=== PATIENT | female | born 1955 | race Caucasian/White ===

== ENCOUNTER → 2016-11-04 | Outpatient (CLI) | payer OTHER ==
[~2016-11-04] MED LIST: CALCIUM + D 6001 TA1 PO; CEFTIN500 MG PO; COMBIGAN EYE DRO5 ML OS; CYANOCOBALAM1000 MCG PO; HYDROCHLOROTH12.5 MG PO; LEVOTHYROXINE75 MCG PO; LORATADINE-D 11 EACH PO; NAPROSYN500 MG PO; NEPTAZANE50 M1 PO; NICOTINE TRANSD21 MG EXT; NORCO 7.5-3251 EACH PO; PHENERGAN25 M1 PO; PRED FORTE1 ML OS; PREDNISONE10 MG/DOSE PO; STEROIDS; SYNTHROID175 MCG PO; ZOLOFT; ZOLOFT PO; ZYRTEC
--- NOTE | ~2016-11-04 | CT57 ---
[facility] A Service of [facility] RADIOLOGY TEXT RESULTS PATIENT: GAYATHRI STOREY LOCATION: [facility] : 55 UNIT #: [id number] AGE: [address]: Monisha Irene SEX: F ORDER DR: [id number] [facility] [address] [place], [place] [address] [id number] O MR#: [id number] [facility] #: [id number] NAME: GAYATHRI STOREY : 1955 SEX: F STUDY DATE/TIME: 11/04/2016 10:36 UNIT: [facility] ROOM: STUDY DESCRIPTION: CT Chest Wo Cont Attending Physician: Monisha Irene A.P.R.N. Referring Physician: Monisha Irene A.P.R.N. Ordering Physician: Monisha Irene A.P.R.N. Primary Care Physician: Joshua Delvalle M.D. MEDICAL IMAGING REPORT This report is preliminary unless electronic signature is present EXAM CT chest. HISTORY COPD. Cough and wheezing for several years. Pneumonia June 2016. TECHNIQUE CT of the thorax without contrast. Coronal and sagittal reconstructions were obtained. This CT exam was performed with one or more of the following radiation dose reduction techniques: automatic exposure control, adjustment of mA and/or kV according to patient size, and iterative reconstruction. COMPARISON STUDIES Chest radiograph, 09/23/2016. FINDINGS There is mild centrilobular emphysema. There is minimal linear scarring or atelectasis in both lung bases. There is some mild mucous plugging within the right lower lobe bronchus. No focal consolidation. No thoracic aortic aneurysm. No pericardial or pleural effusion. No enlarged mediastinal or hilar lymph nodes. Benign bilateral adrenal adenomas are noted. No acute osseous abnormalities. IMPRESSION 1. Mild emphysema. 2. Mucous plugging within the right lower lobe bronchi. 3. Minimal linear atelectasis/scarring in the lung bases. [facility] A Service [facility] RADIOLOGY TEXT RESULTS PATIENT: GAYATHRI STOREY LOCATION: [facility] : 55 UNIT #: [id number] AGE: [address]: Monisha Irene SEX: F ORDER DR: Dictated by... Minh Martinez M.D. THIS IS AN ELECTRONICALLY VERIFIED REPORT Minh Martinez M.D. at 11/05/2016 9:21 AM ASHLIE/jake TD: 11/04/2016 16:25 JOB #: [id number] MEDICAL IMAGING REPORT COPY
--- NOTE | ~2016-11-04 | PFT ---
[id number] [facility] [address] [place], [place] [address] [id number] O MR#: [id number] NAME: GAYATHRI STOREY ROOM: SEX: F STUDY DATE/TIME: 11/04/2016 : 1955 AGE: 61 STUDY DESCRIPTION: Attending Physician: Monisha Irene A.P.R.N. Referring Physician: Monisha Irene A.P.R.N. Primary Care Physician: Joshua Delvalle M.D. PULMONARY DIAGNOSTIC REPORT EXAM Pulmonary function test FINDINGS 1. The test meets ATS criteria for acceptability and repeatability. 2. Spirometry shows moderate obstruction with no good bronchodilator response. 3. Lung volumes show significant airtrapping and hyperinflation. 4. Diffusion capacity is moderately to severely reduced. It corrects partially for alveolar ventilation. Dictated by... Cassandra Jimenez/stefan TD: 12/10/2016 21:06 JOB #: [id number] PULMONARY DIAGNOSTIC REPORT Page 1 of 1
== END | disposition home or self-care (01) ==
LOC: CRC 09:12
DX: J44.9 Chronic obstructive pulmonary disease, unspecified (principal); J43.9 Emphysema, unspecified; J98.09 Other diseases of bronchus, not elsewhere classified; J98.4 Other disorders of lung; Z72.0 Tobacco use
CPT/HCPCS: 71250; 94060; 94726; 94729

== ENCOUNTER 2017-03-14 11:57 | Emergency (ER) | payer OTHER ==
--- NOTE | ~2017-03-14 | CR126 ---
[facility]. [facility] A Service of [facility] & [facility] RADIOLOGY TEXT RESULTS PATIENT: GAYATHRI STOREY LOCATION: SED : 55 UNIT #: [id number] AGE: [address]: VINAY SMITH SEX: F ORDER DR: [id number] [place] [id number] E MR#: [id number] Acc #: [id number] NAME: GAYATHRI STOREY : 1955 SEX: F STUDY DATE/TIME: 03/14/2017 14:18 UNIT: SED ROOM: STUDY DESCRIPTION: CR Foot Complete Min 3 View Lt Ordering Physician: [facility] Primary Care Physician: Joshua Delvalle M.D. MEDICAL IMAGING REPORT This report is preliminary unless electronic signature is present. EXAM 3 views of the left foot 03/14/2017 HISTORY 61-year-old female, who fell at home today with pain to the left foot and ankle. COMPARISON None. FINDINGS The tarsal, metatarsal, and phalangeal elements are all anatomically normal in position and alignment. There are no articular defects. No fractures or radiopaque foreign bodies in the soft tissues are apparent. IMPRESSION Normal foot. Dictated by... Sierra Flroes M.D. THIS IS AN ELECTRONICALLY VERIFIED REPORT Sierra Flores M.D. at 03/15/2017 7:08 AM DISHA/juve TD: 03/15/2017 02:11 JOB #: [id number] MEDICAL IMAGING REPORT Page 1 of 1
--- NOTE | ~2017-03-14 | CT71 ---
[facility] A Service of [facility] RADIOLOGY TEXT RESULTS PATIENT: GAYATHRI STOREY LOCATION: SED : 55 UNIT #: [id number] AGE: [address]: VINAY SMITH SEX: F ORDER DR: [id number] [place] [id number] E MR#: [id number] Acc #: [id number] NAME: GAYATHRI STOREY : 1955 SEX: F STUDY DATE/TIME: 03/14/2017 14:19 UNIT: SED ROOM: STUDY DESCRIPTION: CT Head Wo Contrast Ordering Physician: [facility] Primary Care Physician: Joshua Delvalle M.D. MEDICAL IMAGING REPORT This report is preliminary unless electronic signature is present. EXAM Noncontrast CT head 03/14/2015 HISTORY Fell at home today with abrasion and bruising to the bridge of the nose and to the right eye. Hypertension. COMPARISON Noncontrast CT head 09/05/2014. TECHNIQUE This CT exam was performed with one or more of the following radiation dose reduction techniques: automatic exposure control, adjustment of mA and/or kV according to patient size, and iterative reconstruction. FINDINGS No acute intracranial hemorrhage, mass lesion, mass effect or midline shift is seen. Hypodensities are seen within the periventricular and deep white matter of the brain, similar to the previous examination, but there is no convincing CT evidence of acute or evolving infarct. No mass lesion, mass effect or midline shift. Ventricular configuration is within normal limits. No acute calvarial abnormality. Major paranasal sinuses and mastoid air cells appear clear. IMPRESSION 1. No acute intracranial findings. 2. Mild chronic microvascular disease changes have a similar appearance to 09/05/2014. Dictated by... Sierra Flores M.D. [facility] A Service [facility] RADIOLOGY TEXT RESULTS PATIENT: GAYATHRI STOREY LOCATION: SED : 55 UNIT #: [id number] AGE: [address]: VINAY SMITH SEX: F ORDER DR: THIS IS AN ELECTRONICALLY VERIFIED REPORT Sierra Flores M.D. at 03/15/2017 7:08 AM Filiberto TD: 03/15/2017 02:22 JOB #: [id number] MEDICAL IMAGING REPORT Page 1 of 1
--- NOTE | ~2017-03-14 | CR20 ---
[facility]. [facility] A Service of [facility] RADIOLOGY TEXT RESULTS PATIENT: GAYATHRI STOREY LOCATION: SED : 55 UNIT #: [id number] AGE: [address]: VINAY SMITH SEX: F ORDER DR: [id number] [place] [id number] E MR#: [id number] Acc #: [id number] NAME: GAYATHRI STOREY : 1955 SEX: F STUDY DATE/TIME: 03/14/2017 14:18 UNIT: SED ROOM: STUDY DESCRIPTION: CR Ankle Min 3 Views Lt Ordering Physician: [facility] Primary Care Physician: Joshua Delvalle M.D. MEDICAL IMAGING REPORT This report is preliminary unless electronic signature is present. EXAM 3 views left ankle 03/14/2017 HISTORY 61-year-old female with left foot and ankle pain after fall at home today. COMPARISON None. FINDINGS AP, lateral, and oblique projections of the ankle show satisfactory integrity of the joint mortise with a smooth articular surface. There is no identifiable fracture, dislocation, or radiopaque foreign body. IMPRESSION Normal ankle. Dictated by... Sierra Flores M.D. THIS IS AN ELECTRONICALLY VERIFIED REPORT Sierra Flores M.D. at 03/15/2017 7:08 AM LLH/pcl TD: 03/15/2017 02:13 JOB #: [id number] MEDICAL IMAGING REPORT Page 1 of 1
== END 2017-03-14 16:15 | disposition home or self-care (01) ==
LOC: SED 11:57
DX: S09.90XA Unspecified injury of head, initial encounter (principal); S93.402A Sprain of unspecified ligament of left ankle, initial encounter; S90.32XA Contusion of left foot, initial encounter; S00.81XA Abrasion of other part of head, initial encounter; S80.212A Abrasion, left knee, initial encounter; S80.211A Abrasion, right knee, initial encounter; I10 Essential (primary) hypertension; J44.9 Chronic obstructive pulmonary disease, unspecified; J45.909 Unspecified asthma, uncomplicated; E03.9 Hypothyroidism, unspecified; F32.9 Major depressive disorder, single episode, unspecified; F17.210 Nicotine dependence, cigarettes, uncomplicated; W18.39XA Other fall on same level, initial encounter; Y92.009 Unspecified place in unspecified non-institutional (private) residence as the place of occurrence of the external cause
CPT/HCPCS: 29540; 70450; 73610; 73630; 99284

== ENCOUNTER → 2017-03-30 | Outpatient (CLI) | payer OTHER ==
--- NOTE | ~2017-03-30 | MR113 ---
[facility] A Service of [facility] & [facility] RADIOLOGY TEXT RESULTS PATIENT: GAYATHRI STOREY LOCATION: [facility] : 55 UNIT #: [id number] AGE: [address]: NICHOLAS MAST MD SEX: F ORDER DR: [id number] [facility] [address] [place], [place] [address] [id number] O MR#: [id number] Acc #: [id number] NAME: GAYATHRI STOREY : 1955 SEX: F STUDY DATE/TIME: 03/30/2017 7:10 UNIT: [facility] ROOM: STUDY DESCRIPTION: MR Lumbar Wo Contrast Attending Physician: Nicholas Mast M.D. Referring Physician: Nicholas Mast M.D. Ordering Physician: Nicholas aMst M.D. Primary Care Physician: Nicholas Mast M.D. MRI CENTER REPORT This report is preliminary unless electronic signature is present. EXAM MRI of the lumbar spine without contrast, dated 03/30/2017. COMPARISON Plain films lumbar spine dated 01/21/2017. HISTORY Low back pain and left leg weakness and numbness for 3 years. Worsening in the past 3 months. History of fall one month ago when left leg gave out. FINDINGS Multisequence, multiplanar imaging of the lumbar spine was obtained without contrast. Vertebral body heights and alignment are preserved. Degenerative disc signal loss is at multiple levels of the lumbar discs, particularly from L2-3 to L5-S1. Fatty signal 1.6 cm lesion is noted in the left paramidline aspect of L3 vertebral body, likely fatty signal lesion like hemangioma, based on statistics. Conus terminates at inferior aspect of L1 close to L1-2. Signal of conus and cauda equina are within normal limits. Pre and paravertebral soft tissues do not demonstrate any significant abnormality. L1-2: Concentric disc bulge with mild canal stenosis. No neural foraminal narrowing. L2-3: Concentric disc bulge with superimposed left foraminal to extraforaminal broad-based protrusion and mild inferior left neural foraminal narrowing. Zbzz-cw-vmcdcdqf canal stenosis and mild left facet hypertrophic change. L3-4: Concentric disc bulge with superimposed left foraminal to extraforaminal broad-based protrusion and mild inferior bilateral neural STS. [facility] A Service of [facility] & [facility] RADIOLOGY TEXT RESULTS PATIENT: GAYATHRI STOREY [facility] UNIT #: [id number] AGE: [address]: NICHOLAS MAST MD SEX: F ORDER DR: foraminal narrowing, particularly in the left. Mild canal stenosis. L4-5: Concentric disc bulge with superimposed central protrusion with annual fissure, Dxkh-lk-ujqqllzu canal stenosis with mild inferior bilateral neural foraminal narrowing and mild bilateral facet changes. L5-S1: Concentric disc bulge with mild left neural foraminal narrowing. No canal stenosis. Minimal bilateral facet changes are present. IMPRESSION 1. Degenerative changes are noted at multiple levels as described above, relatively worse at L4-5 with pjrk-us-ygbihcvq canal stenosis and mild inferior bilateral neural foraminal narrowing. Dictated by... Elana Perez M.D. THIS IS AN ELECTRONICALLY VERIFIED REPORT Elana Perez M.D. at 04/04/2017 4:10 PM CPR/jt TD: 03/30/2017 18:57 JOB #: [id number] MRI CENTER REPORT Page 1 of 1 COPY
== END | disposition home or self-care (01) ==
LOC: CMRI 06:37
DX: M54.9 Dorsalgia, unspecified (principal); R20.0 Anesthesia of skin; R29.898 Other symptoms and signs involving the musculoskeletal system; M51.26 Other intervertebral disc displacement, lumbar region; M48.06 Spinal stenosis, lumbar region; M51.86 Other intervertebral disc disorders, lumbar region
CPT/HCPCS: 72148